=== PATIENT | female | born 1995 | race African-American/Black ===

== ENCOUNTER 2017-11-07 18:54 | Emergency (ER) | payer SELFPAY ==
[~2017-11-07] VITALS: Ht 160 cm; Wt 66.9 kg
[2017-11-07] MEDS ORDERED: FLUCONAZOLE 200MG TABLET PO ONE (21:45)
[2017-11-07] MEDS ORDERED: FLUCONAZOLE 200MG TABLET PO NR (22:15)
[2017-11-07 22:16] VITALS: BP 112/72
== END 2017-11-07 22:15 | disposition home or self-care (01) ==
LOC: ER 21:25
DX: B37.9 Candidiasis, unspecified (principal)
CPT/HCPCS: 81025; 99283